=== PATIENT | male | born 1970 | race Hispanic/Latino ===

== ENCOUNTER 2017-05-14 10:44 | Emergency (ER) | payer OTHER ==
[2017-05-14] MEDS ORDERED: ATIVAN IM ONE (11:00)
--- NOTE | 2017-05-14 11:01 | Emergency Department Report ---
ED General Adult HPI - General Chief complaint: Pain General Stated complaint: MH Time Seen by Provider: 05/14/17 11:00 Source: patient Mode of arrival: Ambulatory Limitations: No Limitations - History of Present Illness Initial comments: This is a 46-year-old male who was previously unknown to this provider. The patient presents to the ER for general evaluation. He denies chronic medical conditions, and denies allergies to medications. He reports that he is very unhappy and stressed out because his girlfriend was found not breathing yesterday, was intubated at another hospital, and most likely has irreversible anoxic brain injury. This is very distressful to the patient. The patient denies homicidality and suicidality. He denies hallucinations. He denies overdose. He requests to speak to a mental health professional. His symptoms are constant. Initially they have no exacerbating or relieving factors. -: Gradual Consistency: constant Improves with: none Worsens with: none Associated Symptoms: denies: confusion, chest pain, cough, diaphoresis, loss of appetite, malaise, nausea/vomiting, shortness of breath, syncope, weakness - Related Data Previous Rx's Medication Instructions Recorded Last Taken Type LORazepam [Ativan] 1 mg PO BID #10 tab 05/14/17 Unknown Rx Allergies Allergy/AdvReac Type Severity Reaction Status Date / Time No Known Allergies Allergy Unverified 05/14/17 13:12 ED Review of Systems ROS: Stated complaint: MH Other details as noted in HPI Constitutional: denies: fever Eyes: as per HPI ENT: as per HPI Respiratory: no symptoms reported. denies: shortness of breath Cardiovascular: denies: chest pain Gastrointestinal: denies: abdominal pain Genitourinary: as per HPI Musculoskeletal: as per HPI Skin: as per HPI Neurological: as per HPI Psychiatric: depression. denies: auditory hallucinations, visual hallucinations , homicidal thoughts, suicidal thoughts ED Past Medical Hx - Medications Home Medications: Home Medications Medication Instructions Recorded Confirmed Last Taken Type LORazepam [Ativan] 1 mg PO BID #10 tab 05/14/17 Unknown Rx ED Physical Exam - General General appearance: alert, in distress - Head Head exam: Present: atraumatic, normocephalic - Eye Eye exam: Present: normal appearance, EOMI. Absent: nystagmus - ENT ENT exam: Present: normal exam, normal orophraynx, mucous membranes moist, normal external ear exam - Neck Neck exam: Present: normal inspection, full ROM - Respiratory Respiratory exam: Present: normal lung sounds bilaterally. Absent: respiratory distress, chest wall tenderness - Cardiovascular Cardiovascular Exam: Present: normal rhythm, tachycardia, normal heart sounds. Absent: systolic murmur, diastolic murmur, rubs, gallop - GI/Abdominal GI/Abdominal exam: Present: soft, normal bowel sounds. Absent: distended, tenderness, guarding, rebound, rigid, pulsatile mass - Rectal Rectal exam: Present: deferred - Extremities Exam Extremities exam: Present: normal inspection, full ROM. Absent: pedal edema, calf tenderness - Back Exam Back exam: Present: normal inspection, full ROM. Absent: tenderness, CVA tenderness (R), paraspinal tenderness, vertebral tenderness - Neurological Exam Neurological exam: Present: alert, oriented X3, CN II-XII intact, normal gait, other (Extraocular movements intact. Tongue midline. No facial droop. Facial sensation intact to light touch in the V1, V2, V3 distribution bilaterally. 5 and 5 strength in 4 extremities.. Sensation is intact to light touch in 4 extremities.). Absent: motor sensory deficit - Psychiatric Psychiatric exam: Present: depressed, anxious. Absent: homicidal ideation, suicidal ideation - Skin Skin exam: Present: warm, dry, intact, normal color. Absent: rash ED Course Vital Signs 05/14/17 05/14/17 05/14/17 11:19 11:24 12:33 Temperature 98.6 F 98.6 F Pulse Rate 115 H 106 H 93 H Respiratory 20 20 18 Rate Blood Pressure 168/127 Blood Pressure 168/127 163/115 [Right] O2 Sat by Pulse 98 98 100 Oximetry 05/14/17 12:34 Temperature Pulse Rate Respiratory 16 Rate Blood Pressure Blood Pressure [Right] O2 Sat by Pulse 99 Oximetry - Reevaluation(s) Reevaluation #1: 05/14/17 12:13 Differential diagnosis, including but not limited to: Anxiety, grief, bereavement, mood disorder Assessment and plan: 46-year-old male who is presenting with an expected reaction after a manic event in his personal life. He does not require 1013. He is clinically sober at this time. He was given Ativan, and felt much improved. His physical exam is unremarkable with the exception of hypertension and tachycardia, as might be secondary to emotional stress that he is going under. He has no medical complaints at this time, GCS of 15, NIH score of 0, and clinically sober. He has requested a psychiatric evaluation for outpatient resources for anxiety and grief. This is pending at this time. Reevaluation #2: 05/14/17 12:54 Tachycardia resolved. Patient seen in conjunction with crisis. Patient feels improved. Walking with steady gait. Patient given local outpatient resources. Patient will be discharged. Reevaluation #3: 05/14/17 13:41 Patient and family requested Ativan. I explained to the patient and family that this was not something that I felt comfortable or appropriate to dispense as an ER physician, and that the patient should follow-up in outpatient primary care doctor or mental health professional if he felt like he needed additional sedating medication. ED Medical Decision Making - Lab Data Vital Signs 05/14/17 05/14/17 11:19 11:24 Temperature 98.6 F 98.6 F Pulse Rate 115 H 106 H Respiratory 20 20 Rate Blood Pressure 168/127 Blood Pressure 168/127 [Right] O2 Sat by Pulse 98 98 Oximetry Critical care attestation.: If time is entered above; I have spent that time in minutes in the direct care of this critically ill patient, excluding procedure time. ED Disposition Clinical Impression: Mood disorder Disposition: DC-01 TO HOME OR SELFCARE Is pt being admited?: No Does the pt Need Aspirin: No Condition: Stable Instructions: Mood Disorders (ED) Additional Instructions: Follow up with the outpatient resources that were provided to you. Please note that blood pressure was elevated in the emergency department, and this needs to be followed up by her primary care doctor within the next month. Long-term complications of hypertension and elevated blood pressure include stroke, heart attack, disability, , paralysis, loss of quality of life. Return to the ER right away with new pain, worsened pain, migration of pain, fevers, chills, lethargy, irritability, projectile vomiting, change in mental status, inability tolerate liquid feeds, homicidality, suicidality. Prescriptions: LORazepam [Ativan] 1 mg PO BID #10 tab Referrals: PRIMARY CAREMD [Primary Care Provider] - 3-5 Days RODDY STORM MD [Staff Physician] - 3-5 Days [facility] [Provider Group] - 3-5 Days
[2017-05-14 12:34] VITALS: BP 163/115
== END 2017-05-14 13:00 | disposition home or self-care (01) ==
LOC: ED 10:44
DX: F39 Unspecified mood [affective] disorder (principal)
CPT/HCPCS: 96372; 99282; J2060